=== PATIENT | female | born 1950 | race Asian ===

== ENCOUNTER 2018-02-05 08:50 | Outpatient (RCR) | payer MEDICARE, BC | END 2018-02-15 | disposition home or self-care (01) | LOC: PTY 08:50 | DX: M75.01 Adhesive capsulitis of right shoulder (principal); M41.9 Scoliosis, unspecified; Z85.72 Personal history of non-Hodgkin lymphomas; Z90.49 Acquired absence of other specified parts of digestive tract; Z90.710 Acquired absence of both cervix and uterus | CPT/HCPCS: 97110; 97140; 97161; G8984; G8985 ==

== ENCOUNTER 2018-02-17 15:10 | Outpatient (RCR) | payer MEDICARE, BC | END 2018-03-18 | disposition home or self-care (01) | LOC: PTY 15:10 | DX: M75.01 Adhesive capsulitis of right shoulder (principal); M41.9 Scoliosis, unspecified; Z85.72 Personal history of non-Hodgkin lymphomas; Z90.49 Acquired absence of other specified parts of digestive tract; Z90.710 Acquired absence of both cervix and uterus ==

== ENCOUNTER 2018-05-06 14:00 | Outpatient (RCR) | payer MEDICARE, BC | END 2018-05-18 | disposition home or self-care (01) | LOC: PTY 14:00 | DX: M75.01 Adhesive capsulitis of right shoulder (principal); Z85.72 Personal history of non-Hodgkin lymphomas; Z90.710 Acquired absence of both cervix and uterus; Z90.49 Acquired absence of other specified parts of digestive tract; M19.011 Primary osteoarthritis, right shoulder | CPT/HCPCS: 97110; 97140; G8984; G8985 ==

== ENCOUNTER 2018-05-23 11:00 | Outpatient (RCR) | payer MEDICARE, BC | END 2018-06-18 | disposition home or self-care (01) | LOC: PTY 11:00 | DX: M75.01 Adhesive capsulitis of right shoulder (principal); M41.9 Scoliosis, unspecified; Z85.72 Personal history of non-Hodgkin lymphomas; Z90.49 Acquired absence of other specified parts of digestive tract; Z90.710 Acquired absence of both cervix and uterus ==